=== PATIENT | female | born 1995 | race Hispanic/Latino ===

== ENCOUNTER 2018-04-11 08:14 | Emergency (ER) | payer MEDICAID, SELFPAY ==
[2018-04-11 09:45] LABS: Pregnancy Test - Urine (BHCG) Negative (Negative); Pregu Control Background? CLEAR/WHITE (CLR/WHITE); Pregu Control Bar Appear? YES (CONTROL BAR)
[2018-04-11] MEDS ORDERED: Cyclobenzaprine 10 MG TAB ONE (10:03)
[2018-04-11] MEDS ORDERED: Ketorolac Tromethamine 60 MG/2 ML VIAL ONE (10:03)
--- NOTE | 2018-04-11 10:33 | RAD ---
PELVIS RADIOGRAPH: Date: 04/11/18 HISTORY: Pain with pelvic pressure. COMPARISON: None. FINDINGS: There is a lumbosacral transitional vertebra with the enlarged right L5 transverse process having ano malous articulation with the sacrum. There is also apparently some osseous bridging upon the right L4 transverse process also to the sacrum. There are asymmetric erosive changes right SI joint relative to the left. Small acetabular osteophytes are present, larger on the right. 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 POS: [facility]
--- NOTE | 2018-04-11 10:48 | RAD ---
THERE VIEWS LUMBOSACRAL SPINE: Comparison: None. History: Fall with low back pain. FINDINGS: Three views of the lumbosacral spine shows normal height and alignment of the vertebral bodies and in travertebral discs without fracture or subluxation. No significant degenerative changes are seen. The re is slight curvature of the spine seen. IMPRESSION: No evidence of acute osseous abnormality. POS: [facility]
== END 2018-04-11 12:20 | disposition home or self-care (01) ==
LOC: ERS 08:14
DX: M54.5 Low back pain (principal); F41.9 Anxiety disorder, unspecified; F17.210 Nicotine dependence, cigarettes, uncomplicated
CPT/HCPCS: 72100; 72170; 81025; 96372; J1885